=== PATIENT | female | born 1940 | race Caucasian/White ===

== ENCOUNTER → 2016-05-15 | Outpatient (CLI) | payer MEDICARE, OTHER ==
[~2016-05-15] MED LIST: ACYCLOVIR 400M400 MG PO; ACYCLOVIR800 MG PO; ATORVASTATIN CA20 MG PO; AVPAK AZITHROM250 MG PO; BACTRIM DS 8001 TAB PO; BAYER ASPIRIN R81 MG PO; BENADRYL ALLERG25 M1 PO; BISOPROLOL 5MG T5 MG PO; CEFDINIR300 MG PO; CEFEPIME2 GM/100 M IV; COMBIVENT INH14.7 GM IN; CYCLOBENZ5 MG PO; DEXAMETHASONE 2M2 MG OR; DIAZEPAM2 MG PO; DIPHEDRYL25 M1 PO; DOCUSATE NA250 MG PO; DOCUSATE SODIU100 MG PO; DUONEB 3 MG/3 ML3 ML IH; FLEXERIL10 MG PO; GABAPENTIN100 M1 PO; HYCODAN COUMPO473 ML OR; HYDROCODONE-HOMATROP OR; HYDROMORPHONE 2M2 MG PO; IMDUR30 MG PO; LEVAQUIN 750 M750 MG PO; LEVAQUIN500 MG PO; LEVOFLOXACIN IV; LEVOTHYROXIN0.075 MG PO; MEDROL 4MG. DOSE4 MG PO; METOPROLOL SUCC50 M1 PO; MONODOX100 MG PO; NAPROSYN 500MG500 MG PO; NITROQUICK0.4 MG SL; OMNICEF 300 MG300 MG PO; PLAVIX75 MG PO; PRAVASTATIN SOD10 MG PO; PREDNISONE 10MG10 MG PO; PREDNISONE 20MG20 MG PO; PROAIR HFA0.09 MG/AC IH; PROMETH-CODEIN 65 ML PO; RANEXA500 MG PO; RANITIDINE HCL150 MG PO; ROBITUSSIN NIG118 ML PO; SERTRALINE HYDR25 MG PO; TRAMADOL 50MG T50 M1 PO; TUMS REGULAR S500 MG PO; VICOPROFEN 7.51 TAB PO; VITAMIN D50000 I1 PO; ZITHROMAX Z-PA250 M1 PO; ZITHROMAX Z-PA250 M2 PO; ZOLOFT 50MG TAB50 MG PO
--- NOTE | 2016-05-15 21:38 | RADIOLOGY REPORT PS360 ---
DEXA SCAN.-BONE DENSITY STUDY HIPS AND LUMBAR SPINE HISTORY: Postmenopausal female osteopenia 75-year-old Bilateral oophorectomy. Smoker low calcium intake. TECHNIQUE: DEXA scan hip and lumbar spine The most complete data summary and color graphic presentation of the today's ( and any prior ) DEXA findings are available in PACS. Definition and treatment guidelines included. COMPARISON: None listed LUMBAR SPINE: L2 vertebral body demonstrates the lowest T score -3.1 with BMD0.827 g/cm sq = osteoporosis Overall mean lumbar L1-L4 T score -2.5 with BMD0.876 g/cm sq . = Borderline osteoporosis . HIPS:. Femoral neck density is best predictor of hip fracture risk . Left femoral neck, demonstrates the lowest T score -2.0 with BMD0.762 g/cm sq . Right femoral neck T score -1.8 with BMD 0.787 Overall Hip Mean T score -2.5 with BMD0.698 g/cm sq . Reflects osteoporosis IMPRESSION 1. LUMBAR SPINE:...... Osteoporosis lumbar spine Overall osteoporosis with L1-L4 T score -2.5 L2 demonstrates T score -3.1 2. HIPS: .......... Overall osteoporosis with mean T score -2.5 osteopenia both femoral necks WHO criteria for post-menopausal, Women: Normal: T-score at or above -1 SD Osteopenia: T-score between -1 and -2.5 SD Osteoporosis: T-score at or below -2.5 SD
== END ==
LOC: RAD 10:02
DX: M85.89 Other specified disorders of bone density and structure, multiple sites (principal)

== ENCOUNTER → 2016-08-06 | Outpatient (CLI) | payer MEDICARE, OTHER ==
--- NOTE | 2016-08-06 08:17 | CARDIOVASCULAR REPORT ---
"Cerebrovascular Exam Indications: 435.9 Unspecified transient cerebral ischemia. 433.10 Occlusion/stenosis of carotid artery without cerebral infarction. IMPRESSIONS 1. The bilateral vertebral arteries are patent with normal antegrade flow. 2. Study suggests 50-69%(lower end of scale)stenosis involving the right internal carotid artery and the left internal carotid artery. No change from the study of 08-Aug-2015. History: Risk factors: Current tobacco use. Hypertension. Carotid duplex study. Complete study and Doppler flow study including spectral analysis, color and goff scale imaging. Height: Height: 172.7cm. Height: 68in. Weight: Weight: 54.4kg. Weight: 119.8lb. Body mass index: BMI: 18.2kg/m^2. Body surface area: BSA: 1.6m^2. Location: Vascular laboratory. Patient status: Outpatient. Tables: Arterial flow: + +--------+--------+ |Location |V sys |V ed | + +--------+--------+ |Right CCA - proximal|104cm/s |28.3cm/s| + +--------+--------+ |Right CCA - distal |90.4cm/s|25.9cm/s| + +--------+--------+ |Right ECA |122cm/s |--------| + +--------+--------+ |Right ICA - proximal|95.1cm/s|23.6cm/s| + +--------+--------+ |Right ICA - mid |106cm/s |39.3cm/s| + +--------+--------+ |Right ICA - distal |143cm/s |55cm/s | + +--------+--------+ |Right vertebral |51.1cm/s|--------| + +--------+--------+ |Left CCA - proximal |101cm/s |28.3cm/s| + +--------+--------+ |Left CCA - distal |104cm/s |32.2cm/s| + +--------+--------+ |Left ECA |127cm/s |--------| + +--------+--------+ |Left ICA - proximal |112cm/s |29.9cm/s| + +--------+--------+ |Left ICA - mid |110cm/s |37.7cm/s| + +--------+--------+ |Left ICA - distal |121cm/s |40.9cm/s| + +--------+--------+ |Left vertebral |73.9cm/s|--------| + +--------+--------+ Velocity ratios: + + + + + + | |Right, V sys|Right, V ed|Left, V sys|Left, V ed| + + + + + + |Max ICA/dist CCA|1.58 |2.12 |1.16 |1.27 | + + + + + + (Report amended ) Electronically signed by: Nato Phelan [id number]"
== END ==
LOC: RT 07:42
DX: I25.10 Atherosclerotic heart disease of native coronary artery without angina pectoris (principal); I11.9 Hypertensive heart disease without heart failure; I65.23 Occlusion and stenosis of bilateral carotid arteries; Z95.5 Presence of coronary angioplasty implant and graft; Z72.0 Tobacco use

== ENCOUNTER → 2016-12-01 | Outpatient (CLI) | payer MEDICARE, OTHER ==
--- NOTE | 2016-12-02 05:03 | RADIOLOGY REPORT PS360 ---
CT CHEST W/O CONTRAST HISTORY: Follow-up pulmonary nodule PULMONARY NODULES ORDERING PHYSICIAN: LAVELL MG MD PATIENT AGE: 75 years TECHNIQUE: Helical acquisition obtainedwithout contrast. Axial, sagittal, and coronal reformatted images are generated and reviewed. COMPARISON: 04/02/2006 FINDINGS: There are small nodes in the mediastinum some which are calcified. Calcified hilar nodes are also present. There is dense coronary artery calcification and/or stents present. Minimal thickening of the pericardium anteriorly with normal heart size. Diffuse centrilobular emphysematous changes with pulmonary fibrosis. Previously described areas of pneumonia cleared. Chronic changes are present in the right middle lobe. There are a few scattered small subpleural nodular opacities in the left lower lobe unchanged. These are 3 mm or less. A 6 mm noncalcified nodules present in the left upper lobe medially adjacent to the aortic arch. Is unchanged dating back to 11/07/2013. No acute bony anomalies. No acute finding in the upper abdomen. IMPRESSION: 1. Interval resolution of previously described pneumonia in 18 mm nodular opacity in the right upper lobe. 2. Emphysema with pulmonary fibrosis 3. Stable 6 mm nodule in the left upper lobe. 4. Coronary artery disease
== END ==
LOC: RAD 12:49
DX: R91.8 Other nonspecific abnormal finding of lung field (principal)